=== PATIENT | female | born 1995 | race Asian ===

== ENCOUNTER 2017-04-21 01:54 | Emergency (ER) | payer OTHER ==
[2017-04-21 01:59] VITALS: RESP 18; TEMP 98.4; O2SAT 94
[2017-04-21] MEDS ORDERED: ONDANSETRON 4 MG/2 ML VIAL IVP ONE (02:07)
[2017-04-21] MEDS ORDERED: NS 1,000 ML IV ONE (02:07)
[2017-04-21] MEDS ORDERED: ONDANSETRON 4 MG/2 ML VIAL ONE (02:07)
--- NOTE | 2017-04-21 02:08 | EDPHY ---
H & P Stated Complaint: ABD PAIN Time Seen by Provider: 04/21/17 02:00 HPI/ROS: Chief Complaint: Abdominal pain, nausea, vomiting HPI: 21-year-old woman started having nausea and abdominal pain yesterday afternoon. It got progressively worse over the course of night. Initially was in the upper abdomen. It comes in waves. No blood in her vomit or coffee- grounds. No dark tarry stools. Does not have a history of similar episodes in the past. Pain is about an 8/10. No fevers or chills. Last menstrual. Was about 2 weeks ago and normal. She does not believe she is . ROS: 10 point Review of Systems is negative except as noted in the HPI. PMH: Denies Social History: No smoking, no alcohol, no recreational drug use Family History: non-contributory Physical Exam: Gen: Awake, Alert, No Distress HEENT: Nose: no rhinorrhea Eyes: PERRLA, EOMI Mouth: Moist mucosa Neck: Supple, no JVD Chest: nontender, lungs clear to auscultation Heart: S1, S2 normal, no murmur Abd: Soft, moderate epigastric tenderness with significant right lower quadrant tenderness with guarding Back: no CVA tenderness, no midline tenderness Ext: no edema, non-tender Skin: no rash Neuro: CN II-XII intact, Sensation grossly intact, Strength 5/5 in bilateral upper and lower extremities - Personal History LMP (Females 10-55): 15-21 Days Ago Current Tetanus Diphtheria and Acellular Pertussis (TDAP): Unsure - Medical/Surgical History Hx Asthma: No Hx Chronic Respiratory Disease: No Hx Diabetes: No Hx Cardiac Disease: No Hx Renal Disease: No Hx Cirrhosis: No Hx Alcoholism: No Hx HIV/AIDS: No Hx Splenectomy or Spleen Trauma: No Other PMH: PT DENIES - Social History Smoking Status: Never smoked Constitutional: Initial Vital Signs Temperature (C) 36.9 C 04/21/17 01:58 Heart Rate 92 04/21/17 01:58 Respiratory Rate 18 04/21/17 01:58 Blood Pressure 108/79 04/21/17 01:58 O2 Sat (%) 94 04/21/17 01:58 O2 Delivery Mode Room Air Allergies/Adverse Reactions: Penicillins Allergy (Verified 05/22/14 20:38) SEAFOOD Allergy (Uncoded 05/22/14 20:38) Home Medications: Medication Instructions Recorded valACYclovir 04/21/17 Medical Decision Making - Diagnostics Imaging Results: Patient has a normal appearing appendix on ultrasound per Dr. Perdomo. There are 2 small mesenteric lymph nodes adjacent. Imaging: Discussed imaging studies w/ board runner Radiologist - Data Points Laboratory Results: Laboratory Results 04/21/17 02:05 04/21/17 02:05 04/21/17 04/21/17 04/21/17 02:05 02:05 02:05 WBC 8.58 10^3/uL 10^3/uL (3.80-9.50) RBC 4.64 10^6/uL 10^6/uL (4.18-5.33) Hgb 14.5 g/dL g/dL (12.6-16.3) Hct 41.3 % % (38.0-47.0) MCV 89.0 fL fL (81.5-99.8) MCH 31.3 pg pg (27.9-34.1) MCHC 35.1 g/dL g/dL (32.4-36.7) RDW 11.6 % % (11.5-15.2) Plt Count 221 10^3/uL 10^3/uL (150-400) MPV 9.7 fL fL (8.7-11.7) Neut % (Auto) 78.6 % H % (39.3-74.2) Lymph % (Auto) 10.7 % L % (15.0-45.0) Hawkins % (Auto) 9.6 % % (4.5-13.0) Eos % (Auto) 0.7 % % (0.6-7.6) Baso % (Auto) 0.2 % L % (0.3-1.7) Nucleat RBC Rel Count 0.0 % % (0.0-0.2) Absolute Neuts (auto) 6.74 10^3/uL H 10^3/uL (1.70-6.50) Absolute Lymphs (auto) 0.92 10^3/uL L 10^3/uL (1.00-3.00) Absolute Monos (auto) 0.82 10^3/uL H 10^3/uL (0.30-0.80) Absolute Eos (auto) 0.06 10^3/uL 10^3/uL (0.03-0.40) Absolute Basos (auto) 0.02 10^3/uL 10^3/uL (0.02-0.10) Absolute Nucleated RBC 0.00 10^3/uL 10^3/uL (0-0.01) Immature Gran % 0.2 % % (0.0-1.1) Immature Gran # 0.02 10^3/uL 10^3/uL (0.00-0.10) Sodium 143 mEq/L mEq/L (135-145) Potassium 3.9 mEq/L mEq/L (3.5-5.2) Chloride 107 mEq/L mEq/L (97-110) Carbon Dioxide 22 mEq/l mEq/l (22-31) Anion Gap 14 mEq/L mEq/L (8-16) BUN 11 mg/dL mg/dL (7-23) Creatinine 1.0 mg/dL mg/dL (0.6-1.0) Estimated GFR > 60 Glucose 104 mg/dL H mg/dL (70-100) Calcium 9.5 mg/dL mg/dL (8.5-10.4) Total Bilirubin 0.7 mg/dL mg/dL (0.1-1.4) AST 21 IU/L IU/L (14-46) ALT 23 IU/L IU/L (9-52) Alkaline Phosphatase 49 IU/L IU/L (38-126) Total Protein 7.1 g/dL g/dL (6.3-8.2) Albumin 4.2 g/dL g/dL (3.5-5.0) Lipase 149 IU/L IU/L (23-300) Beta HCG, Qual NEGATIVE Urine Color Urine Appearance Urine pH Ur Specific [place] Urine Protein Urine Ketones Urine Blood Urine Nitrate Urine Bilirubin Urine Urobilinogen Ur Leukocyte Esterase Urine RBC Urine WBC Ur Epithelial Cells Urine Mucus Urine Glucose 04/21/17 01:15 WBC RBC Hgb Hct MCV MCH MCHC RDW Plt Count MPV Neut % (Auto) Lymph % (Auto) Hawkins % (Auto) Eos % (Auto) Baso % (Auto) Nucleat RBC Rel Count Absolute Neuts (auto) Absolute Lymphs (auto) Absolute Monos (auto) Absolute Eos (auto) Absolute Basos (auto) Absolute Nucleated RBC Immature Gran % Immature Gran # Sodium Potassium Chloride Carbon Dioxide Anion Gap BUN Creatinine Estimated GFR Glucose Calcium Total Bilirubin AST ALT Alkaline Phosphatase Total Protein Albumin Lipase Beta HCG, Qual Urine Color PALE YELLOW Urine Appearance CLEAR Urine pH 7.0 (5.0-7.5) Ur Specific [place] 1.006 (1.002-1.030) Urine Protein 1+ H (NEGATIVE) Urine Ketones NEGATIVE (NEGATIVE) Urine Blood NEGATIVE (NEGATIVE) Urine Nitrate NEGATIVE (NEGATIVE) Urine Bilirubin NEGATIVE (NEGATIVE) Urine Urobilinogen NEGATIVE EU EU (0.2-1.0) Ur Leukocyte Esterase NEGATIVE (NEGATIVE) Urine RBC 1-3 /hpf /hpf (0-3) Urine WBC 1-3 /hpf /hpf (0-3) Ur Epithelial Cells Not Reported Urine Mucus TRACE /lpf /lpf (NONE-1+) Urine Glucose NEGATIVE (NEGATIVE) Medications Given: Discontinued Medications Sodium Chloride (Ns) 1,000 mls @ 0 mls/hr IV ONCE ONE; Wide Open PRN Reason: Protocol Stop: 04/21/17 02:08 Last Admin: 04/21/17 02:10 Dose: 1,000 mls Ketorolac Tromethamine (Toradol) 15 mg IVP EDNOW ONE Stop: 04/21/17 03:05 Last Admin: 04/21/17 03:07 Dose: 15 mg Ondansetron HCl (Zofran) 4 mg IVP EDNOW ONE Stop: 04/21/17 02:08 Last Admin: 04/21/17 02:08 Dose: 4 mg Pantoprazole Sodium (Protonix) 80 mg IVP EDNOW ONE Stop: 04/21/17 02:19 Last Admin: 04/21/17 02:44 Dose: 80 mg Departure - Departure Disposition: Home, Routine, Self-Care Clinical Impression: Acute gastroenteritis Condition: Good Instructions: Ondansetron (By mouth), Gastroenteritis (ED), Acute Nausea and Vomiting (ED) Additional Instructions: Follow up at [facility] in 2-3 days for further evaluation. Return to the emergency department for worsening abdominal pain, uncontrolled nausea vomiting, fevers, chills, or any other concerns. Referrals: [facility],. [Clinic] - As per Instructions
[2017-04-21] MEDS ORDERED: FAMOTIDINE 20 MG/NACL/50 ML BAG IV ONE (02:13)
[2017-04-21 02:17] LABS: PLATELET COUNT 221 10^3/uL (150-400)
[2017-04-21] MEDS ORDERED: PANTOPRAZOLE SODIUM 40 MG VIAL IVP ONE (02:18)
[2017-04-21] MEDS ORDERED: KETOROLAC 15 MG/1 ML SDV IVP ONE (03:04)
[2017-04-21] MEDS ORDERED: ONDANSETRON 4MG PREPACK#2 BTL TAKEHOME ONE (03:17)
[2017-04-21 03:57] VITALS: BP 121/78; PULSE 78
== END 2017-04-21 04:02 | disposition home or self-care (01) ==
DX: K52.9 Noninfective gastroenteritis and colitis, unspecified (principal); E86.9 Volume depletion, unspecified
CPT/HCPCS: 96374; J1885; J2270; J2405